=== PATIENT | female | born 1980 | race Caucasian/White ===

== ENCOUNTER 2023-04-05 11:21 | Emergency (ER) | payer OTHER ==
[~2023-04-05] VITALS: Ht 157.5 cm; Wt 87.1 kg
[2023-04-05 11:36] VITALS: BP_SYST 129; PULSE 86; RESP 20; TEMP 98.1; O2SAT 99
[2023-04-05] MEDS ORDERED: HYDR-3917 PO (13:57)
[2023-04-05 14:24] VITALS: BP_SYST 129; PULSE 86; RESP 20; TEMP 98.1; O2SAT 99
== END 2023-04-05 14:23 | disposition home or self-care (01) ==
LOC: SED 11:21
DX: M54.16 Radiculopathy, lumbar region (principal); Z79.899 Other long term (current) drug therapy
CPT/HCPCS: 72131; 76376; 99284